=== PATIENT | female | born 1935 | race Two or more races ===

== ENCOUNTER 2023-01-09 06:18 | Day surgery (SDC) | payer OTHER ==
[~2023-01-09] VITALS: Ht 157.5 cm; Wt 63.5 kg
[~2023-01-09 06:18] MED LIST: COZAAR100 MG PO; CRESTOR20 MG PO; JANUMET 50-1,01 EACH PO; LEVOTHYROXINE25 MCG PO
== END 2023-01-09 15:40 | disposition home or self-care (01) ==
LOC: CIR.AMB 06:18
PROVIDERS: ATTEND Surgery
DX: C50.411 Malignant neoplasm of upper-outer quadrant of right female breast (principal); R92.1 Mammographic calcification found on diagnostic imaging of breast; R59.0 Localized enlarged lymph nodes; Z20.822 Contact with and (suspected) exposure to COVID-19; I10 Essential (primary) hypertension; E03.9 Hypothyroidism, unspecified; E11.9 Type 2 diabetes mellitus without complications; Z79.84 Long term (current) use of oral hypoglycemic drugs
CPT/HCPCS: 19301; 38525; A9541